=== PATIENT | female | born 1960 | race Caucasian/White ===

== ENCOUNTER 2022-09-29 13:55 | Inpatient (IN) | payer OTHER ==
[~2022-09-29] VITALS: Ht 157.5 cm; Wt 60.8 kg
--- NOTE | 2022-09-29 14:09 | NUR ---
PTE REFIERE QUE TIENE DEBILIDAD Y LA HGB BAJITA
--- NOTE | 2022-09-29 15:59 | NUR ---
PTE FEMENINA ALERTA Y ORIENTADA ES EVALUADA POR . RN GENTILE ORIENTA SOBRE ORDENES DE [place] REFIERE COMPRENDER. COLECTA MUESTRAS DE LABORATORIOS Y CANALIZA VENA BAJO MEDIDAS ASEPTICAS. COLECTA TUBOS PILOTOS PARA REQUISICION DE PRBC'S Y CONTACTA A [facility].
--- NOTE | 2022-09-29 16:51 | NUR ---
4:00PM: SE LLAMA A PERSONAL DE [facility] MS TRISTA QUIEN REFIERE QUE PACIENTE NO TIENE RECORD PREVIO PARA TRANSFUCION, SE COLECTAN TUBOS PILOTOS SE HELEN PERMISO DE TRANSFUCION DE PACIENTE. 4:40PM: SE HARMONY TUBOS PILOTOS EN [facility] Y SON COTEJADOS POR MS JOHNS. 4:50PM: SE LLAMA A [facility] Y SE LE INDICA MS SUAZO QUE HARMONY TUBOS PILOTOS PARA RECOGER
--- NOTE | 2022-09-29 20:45 | NUR ---
8:15PM: MS GALLEGOS DE LABORATORIO INDICA QUE LE LLAMAN DE [facility] PARA SOLICITAR PANEL DE ANTICUERPOS DE PACIENTE, QUE PARA DICHA PRUEBA DEBEN TOAMRSE VIKTOR TUBOS LILAS Y UN TUBO ROB Y REQUISAR [place] PIDIENDO EL PANEL. 8:30PM: SE LE ORIENTA A PACIENTE SOBRE NUEVO TRATAMIENTO Y LA MISMA INDICA ENTENDER, SE COLECTAN MUESTRAS Y SE LLENAN DOCUMENTOS PERTINENTES. 8:45PM: SE LLEVAN MUESTRAS A LABORATORIO Y MS ALONZO COTEJA ORDEN DE REQUICION. 8:48PM: SE LLAMA [facility] Y SE LE NOTIFICA A [facility] [place] QUE SE LUCAS REQUICION EN LABORATORIO.
== END 2022-10-04 22:58 | disposition home or self-care (01) | DRG 809 ==
LOC: ER 13:55 → MEDJ 19:19 → SURH 10-01 07:35
PROVIDERS: ADMIT Internal Medicine; ATTEND Internal Medicine
PROC: BW21YZZ Computerized Tomography (CT Scan) of Abdomen and Pelvis using Other Contrast (ICD-10-PCS; principal; 2022-09-29)
PROC: 30233N1 Transfusion of Nonautologous Red Blood Cells into Peripheral Vein, Percutaneous Approach (ICD-10-PCS; 2022-10-01)
DX: D59.9 Acquired hemolytic anemia, unspecified (principal); A04.72 Enterocolitis due to Clostridium difficile, not specified as recurrent; K92.2 Gastrointestinal hemorrhage, unspecified; E87.5 Hyperkalemia; I88.0 Nonspecific mesenteric lymphadenitis; Z20.822 Contact with and (suspected) exposure to COVID-19